=== PATIENT | female | born 1995 | race Caucasian/White ===

== ENCOUNTER 2025-01-05 12:20 | Emergency (ER) | payer SELFPAY ==
[2025-01-05 12:26] VITALS: BP 104/69; PULSE 106; TEMP 36.6; O2SAT 99
[2025-01-05 13:10] LABS: Basophils % 0.8 %; Eosinophils # 0.1 10^3/uL (0.0-0.8); Eosinophils % 2.8 %; Hematocrit 37.3 % (36-47); Lymphocytes # 1.4 10^3/uL (0.8-4.8); Lymphocytes % 36.2 %; Mean Corpuscular Hemoglobin 28.9 pg (27-33); Mean Corpuscular Volume 87.6 fl (85-98); Mean Platelet Volume 10.3 fL (7.4-10.4); Monocytes # 0.4 10^3/uL (0.2-0.9); Monocytes % 9.4 %; Neutrophils % 50.5 %; Nucleated Red Blood Cells % 0 %; Platelet Count 170 10^3/cmm (157-399); Red Blood Count 4.26 10^6/uL (3.85-5.65); Red Cell Distribution Width 12.3 % (12.1-15.1); White Blood Count 3.95 10^3/uL (3.29-11.43)
[2025-01-05 13:26] LABS: Alanine Aminotransferase 16 U/L (0-33); Albumin Level 4.1 g/dL (3.5-5.2); Alkaline Phosphatase 54 U/L (35-105); Aspartate Amino Transferase 26 U/L (0-32); Blood Urea Nitrogen 12 mg/dL (6-20); Calcium 9.1 mg/dL (8.5-10.5); Carbon Dioxide 24 mmol/L (22-29); Chloride 104 mmol/L (98-107); Glomerular Filtration Rate 119.9 mL/min (90-130); Glucose 79 mg/dL (65-115); Lipase 32 U/L (13-60); Osmolality Calculated 289 mOsm/kg (285-295); Sodium 140 mmol/L (136-145); Total Bilirubin 0.2 mg/dL (0.15-1.2); Total Protein 8.1 g/dL (6.6-8.7)
--- NOTE | 2025-01-05 13:31 | XRR_ITS ---
PROCEDURE INFORMATION: Exam: XR Chest Exam date and time: 01/05/2025 1:38 PM Age: 29 years old Clinical indication: Angina pectoris; Abd pain and nausea for the past few days. PT states she has been getting weaker too. C/O L chest pains also; Additional info: Cp TECHNIQUE: Imaging protocol: Radiologic exam of the chest. Views: 1 view. COMPARISON: No relevant prior studies available. FINDINGS: Lungs: No focal consolidation. Pleural spaces: No evidence of pneumothorax. No evidence of pleural effusion. Heart/Mediastinum: Cardiomediastinal silhouette is within normal limits. Bones/joints: No evidence of acute osseous abnormality. XR/XR chest 1V portable [id number] IMPRESSION: 1. No acute cardiopulmonary abnormality.
[2025-01-05 13:33] LABS: HCG, Serum Qual Negative (Negative)
--- NOTE | 2025-01-05 13:34 | CTR_ITS ---
PROCEDURE INFORMATION: Exam: CTA Chest With Contrast Exam date and time: 01/05/2025 2:03 PM Age: 29 years old Clinical indication: Abdominal pain; Localized; Left lower quadrant (llq); Sternal or substernal pain; Additional info: Cp/abd pain. Left sided abd pain with nausea and central chest pain TECHNIQUE: Imaging protocol: Computed tomographic angiography of the chest with contrast. Exam focused on the arteries. 3D rendering (Not supervised by radiologist): MIP and/or 3D reconstructed images were created by the technologist. Radiation optimization: All CT scans at this facility use at least one of these dose optimization techniques: automated exposure control; mA and/or kV adjustment per patient size (includes targeted exams where dose is matched to clinical indication); or iterative reconstruction. Contrast material: OMNI 350; Contrast volume: 100 ml; Contrast route: INTRAVENOUS (IV); COMPARISON: CR XR chest 1V portable [id number] 01/05/2025 1:38 PM RADIATION DOSE METRICS: Total DLP (mGy-cm): 760 FINDINGS: Pulmonary arteries: Evaluation for pulmonary thromboembolism is limited beyond the segmental level due to respiratory motion. No evidence of PE. Aorta: No evidence of aneurysmal dilatation or dissection of the thoracic aorta. Thyroid: Grossly unremarkable. Lungs: No focal consolidation. No evidence of pneumonia. Pleural spaces: No evidence of pleural effusion. No pneumothorax. Heart: No cardiomegaly. No pericardial effusion. Mediastinal space: No evidence of mediastinal mass, fluid collection or hematoma. Lymph nodes: No mediastinal or hilar adenopathy. Bones/joints: No evidence of acute fracture or aggressive osseous lesion. Soft tissues: No evidence of fluid collection or hematoma in the superficial soft tissues. PROCEDURE INFORMATION: Exam: CT Abdomen And Pelvis With Contrast Exam date and time: 01/05/2025 2:03 PM Age: 29 years old Clinical indication: Abdominal pain; Localized; Left lower quadrant (llq); Sternal or substernal pain; Additional info: Cp/abd pain. Left sided abd pain with nausea and central chest pain TECHNIQUE: Imaging protocol: Computed tomography of the abdomen and pelvis with contrast. Radiation optimization: All CT scans at this facility use at least one of these dose optimization techniques: automated exposure control; mA and/or kV adjustment per patient size (includes targeted exams where dose is matched to clinical indication); or iterative reconstruction. Contrast material: OMNI 350; Contrast volume: 100 ml; Contrast route: INTRAVENOUS (IV); COMPARISON: CR XR chest 1V portable [id number] 01/05/2025 1:38 PM RADIATION DOSE METRICS: Total DLP (mGy-cm): 760 FINDINGS: Diaphragm: No evidence of diaphragmatic defect. Liver: No focal hepatic lesion. Gallbladder and biliary ducts: Unremarkable. No intra-hepatic or extra-hepatic biliary dilatation. Pancreas: Unremarkable. Spleen: Unremarkable. Adrenal glands: Unremarkable. Kidneys and ureters: No renal parenchymal abnormality. No hydronephrosis or ureteral stone. Stomach and bowel: No evidence of bowel obstruction or perienteric inflammatory changes. Appendix: Normal appendix. Intraperitoneal space: No evidence of free air or fluid collection. Vasculature: No aneurysmal dilatation or dissection of the abdominal aorta. The celiac trunk, SMA and ANTONIA are grossly patent. No evidence of IVC thrombus. The portal vein, SMV and splenic veins are grossly patent. Lymph nodes: No adenopathy. Urinary bladder: Grossly unremarkable. Reproductive: Heterogeneous enhancement of the myometrium, otherwise grossly unremarkable. Bones/joints: No evidence of acute fracture within limitations of motion degradation. Soft tissues: No evidence of fluid collection or hematoma in the superficial soft tissues. CT/CT angio chest w abd pel w con IMPRESSION: 1. No evidence of PE or acute aortic abnormality. IMPRESSION: 1. No evidence of acute abnormality in the abdomen or pelvis. 2. Nonspecific heterogeneous enhancement of the uterine myometrium raising the question of adenomyosis. Consider follow-up outpatient steamfitter evaluation and pelvic sonography.
--- NOTE | 2025-01-05 13:38 | ED_ITS ---
HPI - Abdominal Pain 2 General: Chief Complaint: Abdominal Pain Stated Complaint: abd pain, chest pains Time Seen by Provider: 01/05/25 13:30 Source: patient Mode of arrival: ambulatory Limitations: no limitations History of Present Illness: 29-year-old female who states that she h as been having left lower quadrant abdominal pain for the last 2 to 3 days. Patient states she is also had some slight chest pains. She denies any vomiting diarrhea. She has had some generalized weakness as well. Associated Symptoms: Denies chills, diarrhea, fever(s), nausea and vomiting Related Data Previous Rx's ?Medication ?Instructions ?Recorded ondansetron 4 mg disintegrating 4 mg PO Q6H PRN nausea and 01/05/25 tablet vomiting #14 tabs Allergies Allergy/AdvReac Type Severity Reaction Status Date / Time No Known Allergies Allergy Verified 01/05/25 12:39 Review of Systems 2 Const: Denies: fever(s), chills, body aches or change in appetite ENMT: Denies: throat pain or dental pain Card: Denies: chest pain Resp: Denies: dyspnea GI: Reports: abdominal pain; Denies: nausea, vomiting or diarrhea Musc: Denies: neck pain or back pain Skin/Breast: Denies: rash Neuro: Denies: headache(s) Physical Exam 2 Const: COMMON NORMALS: no acute distress, patient oriented x3 and healthy appearing HENMT: COMMON NORMALS: normocephalic and atraumatic HEAD & SCALP: n ormocephalic and atraumatic Eye: COMMON NORMALS: conjunctivae normal CONJUNCTIVA: Yes conjunctivae normal Neck/C-Spine: COMMON NORMALS: full ROM and supple Chest: COMMONS NORMALS: normal inspection of the chest and normal palpation of entire chest wall Resp: COMMON NORMALS: normal respiratory effort, No retractions, No use of accessory muscles and clear to auscultation bilaterally AUSCULTATION: clear to auscultation bilaterally Cardio: COMMON NORMALS: regular rate, regular rhythm and No murmurs present (Cardio) RATE: regular rate RHYTHM: regular rhythm GI: COMMON NORMALS: Normal to inspection, nondistended, normoactive bowel sounds present, Soft to palpation and no masses PALPATION: Yes Soft to palpation and Yes Tenderness to palpation present (GI) Details: LLQ Extremity: COMMON NORMALS: normal to inspection and full ROM Neuro: COMMON NORMALS: patient oriented x3, moves all extremities and no focal motor deficits Psych: COMMON NORMALS: mental status grossly normal, Normal thought process present and cooperative THOUGHT PROCESS: Normal thought process present Skin: COMMON NORMALS: no rashes or lesions noted and no wounds GENERAL SKIN EXAM: no rashes or lesions noted Course 2 Vital Signs: Vital signs: Vital Signs Temperature 97.9 F 01/05/25 12:26 Pulse Rate 106 H 01/05/25 12:26 Blood Pressure 104/69 01/05/25 12:26 Pulse Oximetry 99 01/05/25 12:26 Oxygen Delivery Me thod Room Air 01/05/25 12:26 MDM - Abdominal Pain Medical Decision Making Patient presents here with abdominal pain she also appears to be having anxiety attacks she had had 1 here which she came extremely anxious felt improved after Ativan blood work EKG scans are all normal patient stable for discharge follow- up PCP return if worsening. Medical Records I reviewed the patient's medical records. Lab Data I reviewed the patient's lab results. 01/05/25 13:01 01/05/25 13:01 Labs/Radiology: Radiology Impressions Chest X-Ray 01/05/25 13:31 IMPRESSION: 1. No acute cardiopulmonary abnormality. Chest/Abdomen/Pelvis CT 01/05/25 13:34 IMPRESSION: 1. No evidence of PE or acute aortic abnormality. IMPRESSION: 1. No evidence of acute abnormality in the abdomen or pelvis. 2. Nonspecific heterogeneous enhancement of the uterine myometrium raising the question of adenomyosis. Consider follow-up outpatient gynecology teacher evaluation and pelvic sonography. Laboratory Results WBC 3.95 10^3/uL (3.29-11.43) 01/05/25 13:01 RBC 4.26 10^6/uL (3.85-5.65) 01/05/25 13:01 Hgb 12.30 g/dL (11.27-16.99) 01/05/25 13:01 Hct 37.3 % (36-47) 01/05/25 13:01 MCV 87.6 fl (85-98) 01/05/25 13:01 MCH 28.9 pg (27-33) 01/05/25 13:01 MCHC 33.0 g/dL (30-55) 01/05/25 13:01 RDW 12.3 % (12.1-15.1) 01/05/25 13:01 Plt Count 170 10^3/cmm (157-399) 01/05/25 13:01 MPV 10.3 fL (7.4-10.4) 01/05/25 13:01 Neut % (Auto) 50.5 % 01/05/25 13:01 Lymph % (Auto) 36.2 % 01/05/25 13:01 Mcmullen % (Auto) 9.4 % 01/05/25 13:01 Eos % (Auto) 2.8 % 01/05/25 13:01 Baso % (Auto) 0.8 % 01/05/25 13:01 Neut # (Auto) 2.00 10^3/uL (1.8-7.7) 01/05/25 13:01 Lymph # (Auto) 1.4 10^3/uL (0.8-4.8) 01/05/25 13:01 Mcmullen # (Auto) 0.4 10^3/uL (0.2-0.9) 01/05/25 13:01 Eos # (Auto) 0.1 10^3/uL (0.0-0.8) 01/05/25 13:01 Baso # (Auto) 0.0 10^3/uL (0.0-0.1) 01/05/25 13:01 Nucleated RBC % (auto) 0 % 01/05/25 13:01 Nucleated RBCs # 0.0 /100WBC 01/05/25 13:01 Sodium 140 mmol/L (136-145) 01/05/25 13:01 Potassium 4.4 mmol/L (3.5-5.1) 01/05/25 13:01 Chloride 104 mmol/L (98-107) 01/05/25 13:01 Carbon Dioxide 24 mmol/L (22-29) 01/05/25 13:01 Anion Gap 16.4 (5-19) 01/05/25 13:01 BUN 12 mg/dL (6-20) 01/05/25 13:01 Creatinine 0.6 mg/dL (0.5-0.9) 01/05/25 13:01 GFR Calculation 119.9 mL/min (90-130) 01/05/25 13:01 Glucose 79 mg/dL (65-115) 01/05/25 13:01 Calculated Osmolality 289 mOsm/kg (285-295) 01/05/25 13:01 Calcium 9.1 mg/dL (8.5-10.5) 01/05/25 13:01 Total Bilirubin 0.2 mg/dL (0.15-1.2) 01/05/25 13:01 AST 26 U/L (0-32) 01/05/25 13:01 ALT 16 U/L (0-33) 01/05/25 13:01 Alkaline Phosphatase 54 U/L (35-105) 01/05/25 13:01 Total Protein 8.1 g/dL (6.6-8.7) 01/05/25 13:01 Albumin 4.1 g/dL (3.5-5.2) 01/05/25 13:01 Globulin 4.0 g/dL (1.3-4.6) 01/05/25 13:01 Lipase 32 U/L (13-60) 01/05/25 13:01 HCG, Qual Negative (Negative) 01/05/25 13:01 Urine Color Yellow (Yellow) 01/05/25 13:57 Urine Appearance Clear (CLEAR) 01/05/25 13:57 Urine pH 6.5 (5-7) 01/05/25 13:57 Ur Specific Scheller 1.011 (1.005-1.030) 01/05/25 13:57 Urine Protein Negative (Negative) 01/05/25 13:57 Urine Glucose (UA) Negative (Normal) 01/05/25 13:57 Urine Ketones Trace (Negative) 01/05/25 13:57 Urine Blood Negative (Negative) 01/05/25 13:57 Urine Nitrate Negative (Negative) 01/05/25 13:57 Urine Bilirubin Negative (Negative) 01/05/25 13:57 Urine Urobilinogen 0.2 mg/dL (Negative) 01/05/25 13:57 Ur Leukocyte Esterase Negative (Negative) 01/05/25 13:57 Urine RBC 0-2 /hpf (0-2) 01/05/25 13:57 Urine WBC 0-5 /hpf (0-5) 01/05/25 13:57 Ur Squamous Epith Cells 6-10 /hpf (0-5) 01/05/25 13:57 Amorphous Sediment Not Reportable 01/05/25 13:57 Urine Bacteria 3+ /hpf (NONE) H 01/05/25 13:57 Hyaline Casts 0.81 /lpf 01/05/25 13:57 All radiology interpretation(s) finalized by discharge Discharge Plan Discharge Patient Disposition: Home Clinical Impression: Abdominal pain Condition: Stable Prescriptions: New ondansetron 4 mg tablet,disintegrating 4 mg PO Q6H PRN (Reason: nausea and vomiting) Qty: 14 0RF Discharge Orders: Discharge ED (Routine); Ordered 01/05/25 Ordered By: Evi Stevens Discharge Diet: Advance as tolerated Discharge Activity: Resume usual activity Patient Instructions: Abdominal Pain (ED) Print Language: American Coding Level of Care Code ED Watch Repair Technician for Christina Anderson
[2025-01-05 13:39] VITALS: BP 111/65; PULSE 101; RESP 18; O2SAT 98
[2025-01-05 14:09] VITALS: BP 129/80; PULSE 122; RESP 27; O2SAT 100
[2025-01-05 14:10] LABS: Bilirubin Urine Negative (Negative); Blood Urine Negative (Negative); Glucose Urine UA Negative (Normal); Ketones Urine Trace (Negative); Leukocyte Esterase Urine Negative (Negative); Nitrate Urine Negative (Negative); Protein Urine Negative (Negative); Specific Gravity, Urine 1.011 (1.005-1.030); Urine Appearance Clear (CLEAR); Urine Color Yellow (Yellow); Urobilinogen Urine 0.2 mg/dL (Negative); pH Urine 6.5 (5-7)
--- NOTE | 2025-01-05 14:15 | ECG_ITS ---
[facility]25[facility]05 Pat Name: Whitney Purvis Department: Room: Gender: Female [place] [facility] Lab Technician: : 1995 Requested By: Evi Stevens Order Number: [id number] Griffin MD: Erika Gonzáles M.D. Measurements Intervals [place] Rate: 97 P: 80 DE: 138 QRS: 74 QRSD: 89 T: -48 QT: 335 QTc: 427 Interpretive Statements SINUS RHYTHM POSSIBLE LEFT ATRIAL ENLARGEMENT [-0.1mV P-WAVE IN V1/V2] MODERATE T-WAVE ABNORMALITY, CONSIDER ANTERIOR ISCHEMIA [-0.1+ mV T-WAVE IN V3/V4] MODERATE T-WAVE ABNORMALITY, CONSIDER INFERIOR ISCHEMIA [-0.1+ mV T-WAVE IN II/aVF] INTERPRETATION BASED ON A DEFAULT AGE OF 40 YEARS No previous ECG available for comparison Electronically Signed On 01-06-2025 06:27:32 CDT by Erika Gonzáles M.D. [email or web address]
[2025-01-05 14:16] LABS: Add Urine Microscopic? YES; Bacteria Urine 3+ /hpf; Hyaline Casts Urine 0.81 /lpf; RBC Urine 0-2 /hpf (0-2); WBC Urine 0-5 /hpf (0-5)
[2025-01-05] MEDS: diphenhydrAMINE 50 mg/mL SDV 1mL 25 MG IVP (14:18)
[2025-01-05 14:27] LABS: Anion Gap 16.4 (5-19); Potassium 4.4 mmol/L (3.5-5.1)
[2025-01-05] MEDS: LORazepam 1 MG/0.5 ML injection 0.5 MG IVP (14:46)
[2025-01-05 14:53] VITALS: BP 116/79; PULSE 99; O2SAT 98
== END 2025-01-05 14:59 | disposition home or self-care (01) ==
PROVIDERS: Emergency Provider Emergency Medicine
DX: R10.31 Right lower quadrant pain (principal); R07.9 Chest pain, unspecified; R53.1 Weakness
CPT/HCPCS: 36415; 71045; 71275; 74177; 80053; 81001; 83690; 84703; 85025; 93005; 96374; 96375; 99285; J1200; J2060